=== PATIENT | male | born 1965 | race Caucasian/White ===

== ENCOUNTER 2018-04-11 07:22 | Day surgery (SDC) | payer OTHER ==
[2018-04-02 12:56] VITALS: BMI 31.1
[2018-04-11] MEDS ORDERED: Midazolam HCl 2 mg/2 ml Vial ONE (10:08)
[2018-04-11] MEDS ORDERED: Fentanyl 100 MCG/2 ML VIAL ONE (10:08)
[2018-04-11] MEDS ORDERED: Atropine Sulfate 1 mg/1 ml Vial ONE (10:09)
--- NOTE | 2018-04-11 10:54 | OP ---
DATE OF PROCEDURE: 04/11/2018 PROCEDURE: Colonoscopy. PREOPERATIVE DIAGNOSIS: Colon polyp surveillance. History of colon polyps. PROCEDURE IN DETAIL: Informed consent was obtained from the patient. He was sedated with total intravenous anesthesia. The rectal exam was performed and was normal. The colonoscope was advanced to the cecum where the ileocecal valve and appendiceal orifice were clearly identified. The colonic mucosa was normal throughout. Retroflex views in the rectum were normal. The preparation quality was excellent. IMPRESSION: Normal surveillance colonoscopy. RECOMMENDATIONS: Recall for colonoscopy in 5 years. [id number]
[2018-04-11] MEDS ORDERED: PROPOFOL 200 MG/20 ML VIAL ONE (17:44)
[2018-04-11] MEDS ORDERED: Lidocaine 1% PF 5 ML VIAL ONE (17:44)
== END 2018-04-11 11:58 | disposition home or self-care (01) ==
LOC: SDC 07:22
PROVIDERS: ATTEND Internal Medicine Gastroenterology
PROC: 0DJD8ZZ Inspection of Lower Intestinal Tract, Via Natural or Artificial Opening Endoscopic (ICD-10-PCS; principal; 2018-04-11)
DX: Z12.11 Encounter for screening for malignant neoplasm of colon (principal); K21.9 Gastro-esophageal reflux disease without esophagitis; D53.9 Nutritional anemia, unspecified; G47.30 Sleep apnea, unspecified; I25.10 Atherosclerotic heart disease of native coronary artery without angina pectoris; E11.9 Type 2 diabetes mellitus without complications; E07.9 Disorder of thyroid, unspecified; I25.2 Old myocardial infarction; I48.91 Unspecified atrial fibrillation; Z86.010 Personal history of colon polyps; Z85.71 Personal history of Hodgkin lymphoma; Z79.84 Long term (current) use of oral hypoglycemic drugs; Z79.82 Long term (current) use of aspirin; Z79.899 Other long term (current) drug therapy
CPT/HCPCS: 36416; J0461; J2001; J2250; J2704; J3010

== ENCOUNTER 2022-04-26 09:17 | Outpatient (CLI) | payer OTHER | END 2022-04-26 09:18 | disposition home or self-care (01) | LOC: RAD 09:17 | PROVIDERS: ATTEND Internal Medicine | DX: R06.09 Other forms of dyspnea (principal) | CPT/HCPCS: 71046 ==

== ENCOUNTER 2023-08-16 09:47 | Outpatient (CLI) | payer OTHER | END 2023-08-16 09:48 | disposition home or self-care (01) | LOC: RAD 09:47 | PROVIDERS: ATTEND Internal Medicine | DX: R06.00 Dyspnea, unspecified (principal) | CPT/HCPCS: 71046 ==